=== PATIENT | female | born 1970 | race Caucasian/White ===

== ENCOUNTER 2019-02-12 20:10 | Emergency (ER) | payer OTHER ==
[~2019-02-12] VITALS: Ht 167.6 cm; Wt 65.8 kg
[~2019-02-12 20:10] MED LIST: ANTIVERT25 M1 PO; ANUSOL-HC25 MG RC; KETO10TA2 PO
== END 2019-02-12 22:22 | disposition home or self-care (01) ==
LOC: ER 20:10
DX: R10.2 Pelvic and perineal pain (principal)

== ENCOUNTER 2019-06-16 10:17 | Outpatient (CLI) | payer OTHER | END 2019-06-16 10:41 | disposition home or self-care (01) | LOC: RAD 10:17 | DX: N60.02 Solitary cyst of left breast (principal); N60.01 Solitary cyst of right breast ==

== ENCOUNTER 2020-04-03 10:19 | Emergency (ER) | payer OTHER ==
[~2020-04-03] VITALS: Ht 167.6 cm; Wt 65.8 kg
== END 2020-04-03 20:06 | disposition home or self-care (01) ==
LOC: ER 10:19
DX: K62.5 Hemorrhage of anus and rectum (principal)

== ENCOUNTER 2021-03-18 12:29 | Outpatient (CLI) | payer OTHER | END 2021-03-18 12:46 | disposition home or self-care (01) | LOC: MAMO-SONO 12:29 | PROVIDERS: ATTEND Obstetrics & Gynecology | DX: Z12.31 Encounter for screening mammogram for malignant neoplasm of breast (principal); N60.11 Diffuse cystic mastopathy of right breast; N60.12 Diffuse cystic mastopathy of left breast ==

== ENCOUNTER 2021-11-22 08:03 | Inpatient (IN) | payer OTHER ==
[~2021-11-22] VITALS: Ht 167.6 cm; Wt 71.2 kg
[2021-11-22] MEDS ORDERED: NEURONTIN300 MG PO (08:10)
[2021-11-22] MEDS ORDERED: FOLIC ACID0.8 M1 PO (08:11)
[2021-11-22] MEDS ORDERED: CYMBALTA20 MG PO (08:11)
== END 2021-11-24 14:56 | disposition home or self-care (01) | DRG 312 ==
LOC: ER 08:03 → MEDI 18:56
PROVIDERS: ADMIT Internal Medicine; ATTEND Internal Medicine
PROC: 4A12X4Z Monitoring of Cardiac Electrical Activity, External Approach (ICD-10-PCS; principal; 2021-11-22)
PROC: B020ZZZ Computerized Tomography (CT Scan) of Brain (ICD-10-PCS; 2021-11-22)
PROC: B246ZZZ Ultrasonography of Right and Left Heart (ICD-10-PCS; 2021-11-23)
PROC: B345ZZZ Ultrasonography of Bilateral Common Carotid Arteries (ICD-10-PCS; 2021-11-23)
PROC: B348ZZZ Ultrasonography of Bilateral Internal Carotid Arteries (ICD-10-PCS; 2021-11-23)
DX: R55 Syncope and collapse (principal); D68.62 Lupus anticoagulant syndrome; S00.83XA Contusion of other part of head, initial encounter; Z20.822 Contact with and (suspected) exposure to COVID-19; M79.7 Fibromyalgia; M06.80 Other specified rheumatoid arthritis, unspecified site

== ENCOUNTER 2021-12-22 07:48 | Outpatient (CLI) | payer OTHER ==
[~2021-12-22 07:48] MED LIST changes: +CYMBALTA20 MG PO; +FOLIC ACID0.8 M1 PO; +NEURONTIN300 MG PO
== END 2021-12-22 07:49 | disposition home or self-care (01) ==
LOC: NUCLEAR 07:48
PROVIDERS: ATTEND Internal Medicine
DX: R07.89 Other chest pain (principal)

== ENCOUNTER 2021-12-22 08:07 | Outpatient (CLI) | payer OTHER | END 2021-12-22 08:08 | disposition home or self-care (01) | LOC: LAB 08:07 | PROVIDERS: ATTEND Internal Medicine | DX: U07.1 COVID-19 (principal); B34.1 Enterovirus infection, unspecified ==

== ENCOUNTER 2022-09-01 10:51 | Outpatient (CLI) | payer OTHER | END 2022-09-01 11:10 | disposition home or self-care (01) | LOC: MAMO-SONO 10:51 | PROVIDERS: ATTEND Plastic Surgery | DX: R92.0 Mammographic microcalcification found on diagnostic imaging of breast (principal) ==